=== PATIENT | female | born 1980 | race Caucasian/White ===

== ENCOUNTER 2019-04-15 14:02 | Outpatient (CLI) | payer OTHER | END 2019-04-15 23:59 | disposition home or self-care (01) | LOC: CFH 14:02 | PROVIDERS: ATTEND Obstetrics & Gynecology | DX: Z12.31 Encounter for screening mammogram for malignant neoplasm of breast (principal) | CPT/HCPCS: 77067 ==

== ENCOUNTER 2020-12-29 12:56 | Day surgery (SDC) | payer OTHER ==
[~2020-12-29] VITALS: Ht 160 cm; Wt 68.5 kg
[2020-12-29] MEDS ORDERED: CHLORHEXIDINE 15 ML UDC ONE (13:25)
[2020-12-29 13:27] VITALS: BP 114/77
[2020-12-29 13:30] LABS: HCG UR SG 1.022 (1.003-1.030)
[2020-12-29] MEDS ORDERED: LACTATED RINGERS 1,000 ML IV SCH (13:30)
[2020-12-29] MEDS ORDERED: CHLORHEXIDINE 15 ML UDC PO ONE (13:30)
[2020-12-29] MEDS ORDERED: LEVO100T PO (13:36)
[2020-12-29 13:57] LABS: BASOPHILS % (AUTO) 1 % (0-1); EOSINOPHILS % (AUTO) 2 % (1-7); LYMPHOCYTES % (AUTO) 37 % (22-44); MEAN CORPUSCULAR HEMOGLOBIN 30.1 pg (27.0-34.8); MEAN CORPUSCULAR HGB CONC 33.2 g/dL (32.4-35.8); MEAN PLATELET VOLUME 7.1 fL (7.4-10.4); MONOCYTES % (AUTO) 4 % (2-9); NEUTROPHILS % (AUTO) 56 % (42-75); PLATELET COUNT 212 x10^3/uL (130-400); RED BLOOD COUNT 4.02 x10^6/uL (3.82-5.3); RED CELL DISTRIBUTION WIDTH 14.4 % (9.6-15.2)
[2020-12-29] MEDS ORDERED: EPINEPHRINE 1 MG/ML, 1ML ONE (14:27)
[2020-12-29] MEDS ORDERED: BUPIVACAINE 0.25% ONE (14:27)
[2020-12-29] MEDS ORDERED: SILVER NITRATE STICK TP ONE (14:27)
[2020-12-29] MEDS ORDERED: MIDAZOLAM 1 MG/ML, 2ML ONE (14:29)
[2020-12-29] MEDS ORDERED: FENTANYL PF 100 MCG/2ML ONE (14:29)
[2020-12-29] MEDS ORDERED: PROMETHAZINE 25 MG/ML, 1ML IVPush PRN (14:30)
[2020-12-29] MEDS ORDERED: HYDROcodone/APAP 7.5-325MG/15ML UDC PO PRN (14:30)
[2020-12-29] MEDS ORDERED: FENTANYL PF 100 MCG/2ML IV PRN (14:30)
[2020-12-29] MEDS ORDERED: HYDROmorphone 1 MG/ML, 1ML INJ IVPush PRN (14:30)
[2020-12-29] MEDS ORDERED: ONDANSETRON 2MG/ML, 2ML IVPush PRN (14:30)
[2020-12-29] MEDS ORDERED: OXYcodone 5 MG/5 ML ORAL.SOL UDC PO PRN (14:30)
[2020-12-29] MEDS ORDERED: MEPERIDINE/PF 25MG/0.5ML IVPush PRN (14:30)
[2020-12-29] MEDS ORDERED: MEPERIDINE/PF 25MG/ML,1ML ONE (16:10)
[2020-12-29] MEDS ORDERED: PROMETHAZINE 25 MG/ML, 1ML ONE (16:10)
== END 2020-12-29 18:50 | disposition home or self-care (01) ==
LOC: OUT 12:56
PROVIDERS: ATTEND Obstetrics & Gynecology
DX: Z30.2 Encounter for sterilization (principal); N83.8 Other noninflammatory disorders of ovary, fallopian tube and broad ligament; E03.9 Hypothyroidism, unspecified; J45.909 Unspecified asthma, uncomplicated; Z20.822 Contact with and (suspected) exposure to COVID-19; Z79.890 Hormone replacement therapy; Z79.899 Other long term (current) drug therapy
CPT/HCPCS: 36415; 58670; 81025; 85025; 86850; 86870; 86900; 86922; 87635; 88302; J0171; J2250; J2550; J3010; J7120; 86923